=== PATIENT | female | born 1940 | race African-American/Black ===

== ENCOUNTER 2018-01-18 10:44 | Outpatient (CLI) | payer MEDICARE, BC | END 2018-01-18 10:45 | disposition home or self-care (01) | LOC: BICMAMMO 10:44 | PROVIDERS: ATTEND Nurse Practitioner | DX: Z12.31 Encounter for screening mammogram for malignant neoplasm of breast (principal) | CPT/HCPCS: 77063; 77067 ==

== ENCOUNTER 2019-01-30 11:31 | Outpatient (CLI) | payer MEDICARE, BC ==
--- NOTE | 2019-01-30 12:58 | MMO ---
Bilateral MAMMO Bilat Screen [facility]. CLINICAL HISTORY: Patient is 78 years old and is seen for screening. The patient has no family history of breast cancer. The patient has no personal history of cancer. VIEWS: The views performed were: bilateral craniocaudal with tomosynthesis and bilateral mediolateral oblique with tomosynthesis. FILMS COMPARED: The present examination has been compared to a prior imaging study performed at [facility] on 01/18/2018. MAMMOGRAM FINDINGS: There are scattered fibroglandular densities. There are no suspicious masses, suspicious calcifications, or new areas of architectural distortion. IMPRESSION: THERE IS NO MAMMOGRAPHIC EVIDENCE OF MALIGNANCY. A ROUTINE FOLLOW-UP MAMMOGRAM IN 1 YEAR IS RECOMMENDED. THE RESULTS OF THIS EXAM WERE SENT TO THE PATIENT. ACR BI-RADS Category 1 - Negative MAMMOGRAPHY NOTE: 1. A negative mammogram report should not delay a biopsy if a dominant of clinically suspicious mass is present. 2. Approximately 10% to 15% of breast cancers are not detected by mammography. 3. Adenosis and dense breasts may obscure an underlying neoplasm.
== END 2019-01-30 11:32 | disposition home or self-care (01) ==
LOC: BICMAMMO 11:31
PROVIDERS: ATTEND Nurse Practitioner
DX: Z12.31 Encounter for screening mammogram for malignant neoplasm of breast (principal); Z98.82 Breast implant status
CPT/HCPCS: 77063; 77067

== ENCOUNTER 2019-11-09 08:23 | Outpatient (CLI) | payer MEDICARE, BC ==
--- NOTE | 2019-11-09 09:08 | BD ---
BONE DENSITOMETRY USING DEXA: Date: HISTORY: 79-year-old female, screening for postmenopausal osteoporosis. FINDINGS: Lumbar Spine: BMD (g/cm2) L1 0.974 T-Score: -0.1 Z-Score: 1.7 L2 1.038 T-Score: 0.1 Z-Score: 2.1 L3 1.014 T-Score: -0.6 Z-Score: 1.5 L4 0.977 T-Score: -0.8 Z-Score: 1.4 L1-L4 1.001 T-Score: -0.4 Z-Score: 1.7 Femoral Neck: 0.622 T-Score: -2.0 Z-Score: -0.5 Total Femur: 0.735 T-Score: -1.7 Z-Score: -0.3 There has been interval improvement of 11.1% in the bone mineral density of the lumbar spine and a re duction of 0.6% in the bone mineral density of the proximal femur since 12/17/2014. IMPRESSION: Osteopenia. POS: [facility]
== END 2019-11-09 08:24 | disposition home or self-care (01) ==
LOC: BICMAMMO 08:23
PROVIDERS: ATTEND Nurse Practitioner
DX: M85.859 Other specified disorders of bone density and structure, unspecified thigh (principal)
CPT/HCPCS: 77080

== ENCOUNTER 2020-03-14 09:00 | Outpatient (CLI) | payer MEDICARE, BC ==
--- NOTE | 2020-03-14 09:31 | MMO ---
Bilateral MAMMO Bilat Screen [facility]. CLINICAL HISTORY: Patient is 79 years old and is seen for screening. The patient has no family history of breast cancer. The patient has no personal history of cancer. VIEWS: The views performed were: bilateral craniocaudal with tomosynthesis and bilateral mediolateral oblique with tomosynthesis. FILMS COMPARED: The present examination has been compared to prior imaging studies performed at [facility] on 01/18/2018 and 01/30/2019. This study has been interpreted with the assistance of computer-aided detection. MAMMOGRAM FINDINGS: There are scattered fibroglandular densities. There are no suspicious masses, suspicious calcifications, or new areas of architectural distortion. IMPRESSION: THERE IS NO MAMMOGRAPHIC EVIDENCE OF MALIGNANCY. A ROUTINE FOLLOW-UP MAMMOGRAM IN 1 YEAR IS RECOMMENDED. THE RESULTS OF THIS EXAM WERE SENT TO THE PATIENT. ACR BI-RADS Category 1 - Negative MAMMOGRAPHY NOTE: 1. A negative mammogram report should not delay a biopsy if a dominant of clinically suspicious mass is present. 2. Approximately 10% to 15% of breast cancers are not detected by mammography. 3. Adenosis and dense breasts may obscure an underlying neoplasm. Reported by: GABRIEL BROWN MD Electonically Signed: [id number]
== END 2020-03-14 09:01 | disposition home or self-care (01) ==
LOC: BICMAMMO 09:00
PROVIDERS: ATTEND Nurse Practitioner
DX: Z12.31 Encounter for screening mammogram for malignant neoplasm of breast (principal)
CPT/HCPCS: 77063; 77067

== ENCOUNTER 2022-03-18 09:26 | Outpatient (CLI) | payer MEDICARE | END 2022-03-18 09:27 | disposition home or self-care (01) | LOC: BICMAMMO 09:26 | PROVIDERS: ATTEND Nurse Practitioner | DX: Z12.31 Encounter for screening mammogram for malignant neoplasm of breast (principal) | CPT/HCPCS: 77063; 77067 ==

== ENCOUNTER 2023-04-27 13:51 | Outpatient (CLI) | payer MEDICARE | END 2023-04-27 13:52 | disposition home or self-care (01) | LOC: BICMAMMO 13:51 | PROVIDERS: ATTEND Nurse Practitioner | DX: Z12.31 Encounter for screening mammogram for malignant neoplasm of breast (principal) | CPT/HCPCS: 77063; 77067 ==

== ENCOUNTER 2024-08-10 13:20 | Outpatient (CLI) | payer MEDICARE | END 2024-08-10 13:21 | disposition home or self-care (01) | LOC: BICMAMMO 13:20 | PROVIDERS: ATTEND Family Medicine | DX: Z12.31 Encounter for screening mammogram for malignant neoplasm of breast (principal) | CPT/HCPCS: 77063; 77067 ==